=== PATIENT | female | born 2000 | race Caucasian/White ===

== ENCOUNTER 2024-01-06 08:50 | Emergency (ER) | payer BC ==
[2024-01-06] MEDS ORDERED: Sodium Chloride 0.9% 10 ML Syringe FLUSH PRN (09:33)
[2024-01-06 09:51] LABS: BASOPHILS PERCENT AUTO 0.7 % (0.2-1.5); EOSINOPHILS ABSOLUTE AUTO 0.2 x10-3/uL (0.0-0.8); EOSINOPHILS PERCENT AUTO 3.7 % (0.6-8.1); HEMATOCRIT 38.8 % (34.2-48.2); HEMOGLOBIN 12.9 g/dL (11.4-15.5); LYMPHOCYTES ABSOLUTE AUTO 1.9 x10-3/uL (1.0-4.4); LYMPHOCYTES PERCENT AUTO 30.4 % (18.4-52.1); MEAN CORPUSCULAR HEMOGLOBIN 29.6 pg (23.9-33.9); MEAN CORPUSCULAR HGB CONC 33.3 g/dL (31.9-34.8); MEAN CORPUSCULAR VOLUME 88.9 fL (76.7-100.5); MEAN PLATELET VOLUME 7.8 fL (7.1-12.4); MONOCYTES ABSOLUTE AUTO 0.5 x10-3/uL (0.3-1.0); MONOCYTES PERCENT AUTO 7.7 % (4.4-15.7); NEUTROPHILS ABSOLUTE AUTO 3.7 x10-3/uL (1.5-6.3); NEUTROPHILS PERCENT AUTO 57.5 % (30.8-76.2); PLATELET COUNT,PLT 319 x10(3)uL (151-488); RED BLOOD CELL COUNT 4.37 x10(6)uL (3.60-5.20); RED CELL DISTRIBUTION WIDTH 13.1 % (12.3-16.5); WHITE BLOOD CELL COUNT,WBC 6.4 x10-3/uL (3.0-10.3)
[2024-01-06 09:54] LABS: BLOOD UREA NITROGEN,BUN 10 mg/dL (7-18); BUN/CREATININE RATIO 11.1 (9-20); CALCIUM 9.1 mg/dL (8.6-10.2); CARBON DIOXIDE,CO2 30 mmol/L (21-32); CHLORIDE,CL 104 mmol/L (100-110); CREATININE 0.9 mg/dL (0.55-1.02); EST CRCL DRUG DOSING (CG) 91.01 mL/min; ESTIMATED GFR 92 mL/min (>60); GLUCOSE RANDOM 85 mg/dL (80-116); POTASSIUM,K 4.3 mmol/L (3.5-5.3); SODIUM,NA 142 mmol/L (135-145)
[2024-01-06 09:55] LABS: BILIRUBIN,URINE NEGATIVE (NEGATIVE); GLUCOSE,URINE NORMAL (NORMAL); KETONES,URINE NEGATIVE (NEGATIVE); LEUKOCYTE ESTERASE,URINE NEGATIVE (NEGATIVE); NITRITE,URINE NEGATIVE (NEGATIVE); OCCULT BLOOD,URINE NEGATIVE (NEGATIVE); PROTEIN,URINE NEGATIVE (NEGATIVE); UROBILINOGEN,URINE NORMAL (NEGATIVE)
[2024-01-06 09:57] LABS: APPEARANCE,URINE CLEAR (CLEAR); COLOR,URINE YELLOW (YELLOW)
[2024-01-06] MEDS: Ondansetron 4 MG/2 ML SDV IVPUSH ONE (09:57)
[2024-01-06] MEDS: Ketorolac 15 MG/ML SDV IVPUSH ONE (09:58)
[2024-01-06] MEDS: Lactated Ringers 1,000 ML IV ONE (09:58)
[2024-01-06 10:06] LABS: ALANINE AMINOTRANSFERASE,ALT 26 U/L (12-36); ALBUMIN 3.5 g/dL (3.5-5.2); ALKALINE PHOSPHATASE 70 IU/L (56-112); ASPARTATE AMNIOTRANSFERASE,AST 21 IU/L (5-25); BILIRUBIN TOTAL 0.3 mg/dL (0.1-1.3); PROTEIN TOTAL,TP 7.1 g/dL (6.0-8.0)
== END 2024-01-06 11:20 | disposition home or self-care (01) ==
LOC: FB.ED 08:50
DX: N83.201 Unspecified ovarian cyst, right side (principal); K59.00 Constipation, unspecified; F17.290 Nicotine dependence, other tobacco product, uncomplicated; Z91.013 Allergy to seafood
CPT/HCPCS: 36415; 74176; 80053; 81003; 83690; 85025; 86140; 96361; 96374; 96375; 99284; 99284-25; J1885; J2405; J7120